=== PATIENT | male | born 1985 | race Caucasian/White ===

== ENCOUNTER 2023-08-07 12:45 | Outpatient (RCR) | payer OTHER ==
[~2023-08-07 12:45] MED LIST: ADVIL200 MG PO; PERCOCET 325 MG1 TA2 PO; TYLENOL 325MG325 MG PO
== END 2023-08-08 ==
LOC: WSPT
DX: M54.50 Low back pain, unspecified (principal)

== ENCOUNTER 2023-11-05 11:15 | Outpatient (RCR) | payer OTHER | END 2023-11-08 | disposition home or self-care (01) | LOC: WSPT | DX: Z98.1 Arthrodesis status (principal) ==

== ENCOUNTER 2023-12-04 15:00 | Outpatient (RCR) | payer OTHER | END 2023-12-08 | disposition home or self-care (01) | LOC: WSPT | DX: M54.50 Low back pain, unspecified (principal); Z98.1 Arthrodesis status ==

== ENCOUNTER 2023-12-05 10:15 | Outpatient (RCR) | payer OTHER | END 2023-12-08 | disposition home or self-care (01) | LOC: WSST | DX: I69.920 Aphasia following unspecified cerebrovascular disease (principal) ==

== ENCOUNTER → 2024-01-05 | Outpatient (CLI) | payer OTHER | LOC: COL.RAD 07:30 | DX: M47.26 Other spondylosis with radiculopathy, lumbar region (principal); M43.27 Fusion of spine, lumbosacral region; M48.07 Spinal stenosis, lumbosacral region ==